=== PATIENT | female | born 1985 | race Asian ===

== ENCOUNTER 2017-10-11 06:45 | Inpatient (IN) | payer SELFPAY ==
[~2017-10-11] VITALS: Ht 160 cm; Wt 72.1 kg
[2017-10-11] MEDS: OXYTOCIN 20 UNITS in LACTATED RINGERS 1,000 ML IV SCH ×2 (02:30→18:26)
[2017-10-11] MEDS ORDERED: PROPOFOL 200 MG/20 ML VIAL IV ONE (07:40)
[2017-10-11] MEDS ORDERED: LACTATED RINGERS 1,000 ML IV SCH (07:48)
[2017-10-11] MEDS ORDERED: CITRIC ACID/SODIUM CITRATE 30 ML UDC PO SCH (07:50)
[2017-10-11] MEDS ORDERED: IBUPROFEN 800 MG TAB PO PRN ×2 (07:50→09:45)
[2017-10-11 08:35] VITALS: BP 108/74
[2017-10-11] MEDS ORDERED: INFLUENZA VIRUS VACCINE QUAD 0.5 ML SYR IMVAC SCH (08:35)
--- NOTE | 2017-10-11 08:42 | NUR ---
PATIENT HAS BEEN SCREENED AND CATEGORIZED LOW NUTRITION RISK. PATIENT WILL BE SEEN WITHIN 7 DAYS OF ADMISSION. 10/17/[address]
[2017-10-11] MEDS ORDERED: ONDANSETRON 4 MG/2 ML VIAL IVP ONE (09:15)
[2017-10-11] MEDS ORDERED: ePHEDrine 50 MG/ML VIAL IV ONE (09:15)
[2017-10-11] MEDS ORDERED: CALC500T2 (09:29)
[2017-10-11] MEDS ORDERED: CITRIC ACID/SODIUM CITRATE 30 ML UDC ONE (09:34)
[2017-10-11] MEDS ORDERED: MIDAZOLAM 2 MG/2 ML VIAL ONE (09:38)
[2017-10-11] MEDS ORDERED: MORPHINE PRES FREE 10 MG/10 ML AMP IV ONE (09:39)
[2017-10-11] MEDS ORDERED: KETAMINE 500 MG/5 ML VIAL ONE (09:39)
[2017-10-11] MEDS ORDERED: fentaNYL 0.05 MG/ML VIAL ONE (09:39)
[2017-10-11] MEDS ORDERED: OXYTOCIN 10 UNITS/ML VIAL ONE (09:42)
[2017-10-11] MEDS ORDERED: TRIAMCINOLONE 40 MG/ML 5ML VIAL ONE (09:42)
[2017-10-11] MEDS ORDERED: TRIMETHOBENZAMIDE 200 MG/2 ML SYR IM PRN (09:45)
[2017-10-11] MEDS ORDERED: SIMETHICONE 80 MG TAB.CHEW PO PRN (09:45)
[2017-10-11] MEDS ORDERED: METHYLERGONOVINE 0.2 MG/ML AMP IM PRN (09:45)
[2017-10-11] MEDS ORDERED: TEMAZEPAM 15 MG CAP PO PRN (09:45)
[2017-10-11] MEDS ORDERED: MEASLES, MUMPS, AND RUBELLA 1 VIAL SQVAC PRN (09:45)
[2017-10-11] MEDS ORDERED: oxyCODONE/APAP 5/325 MG 1 TAB TAB PO PRN (09:45)
[2017-10-11] MEDS ORDERED: KETOROLAC 30 MG/ML VIAL IVP PRN (10:00)
[2017-10-11] MEDS ORDERED: diphenhydrAMINE 50 MG/ML VIAL IVP PRN (10:00)
[2017-10-11] MEDS ORDERED: ONDANSETRON 4 MG/2 ML VIAL IVP PRN (10:00)
[2017-10-11 13:02] LABS: BASOPHILS # (AUTO) 0.1 K/uL (0.00-0.22); EOSINOPHILS # (AUTO) 0.1 K/uL (0-0.4); HEMATOCRIT 34.2 % (36-48); HEMOGLOBIN 11.7 g/dL (12.0-16.0); LYMPHOCYTES # (AUTO) 1.1 K/uL (2.5-16.5); LYMPHOCYTES % (AUTO) 8.7 % (20.5-51.1); MEAN CORPUSCULAR HEMOGLOBIN 31 pg (27-31); MEAN CORPUSCULAR HGB CONC 34 g/dL (33-37); MEAN CORPUSCULAR VOLUME 90 fL (80-94); MONOCYTES # (AUTO) 0.4 K/uL (0.8-1.0); MONOCYTES % (AUTO) 3.3 % (1.7-9.3); NEUTROPHILS # (AUTO) 10.9 K/uL (1.8-7.7); PLATELET COUNT (AUTO) 154 K/uL (140-450); RED BLOOD CELL COUNT(AUTO) 3.81 MIL/uL (4.20-5.40); RED CELL DISTRIBUTION WIDTH 12.4 % (11.6-13.7); WHITE BLOOD COUNT (AUTO) 12.6 K/uL (4.8-10.8)
[2017-10-11 13:14] LABS: ANION GAP 12.4 (8-16); CARBON DIOXIDE 25.2 mmol/L (21-32); CREATININE 0.6 mg/dL (0.6-1.3); POTASSIUM 3.6 mmol/L (3.5-5.1)
[2017-10-11 13:20] LABS: ALBUMIN 2.4 g/dL (3.4-5.0); TOTAL BILIRUBIN 0.3 mg/dL (0.0-1.0)
[2017-10-11 13:40] LABS: RAPID PLASMA REAGIN NON-REACTIVE (Non Reactiv)
--- NOTE | 2017-10-11 14:43 | NUR ---
AWAKE AND ALERT TOLERATED INCENTIVE SPIROMETRY THERAPY WELL WITHOUT INCIDENT ENCOURAGED PATIENT WITH ACKNOWLEDGEMENT TO USE EVERY 1-2 HOURS WHILE AWAKE
[2017-10-11] MEDS ORDERED: DOCUSATE SOD/SENNA 50/8.6 MG 1 TAB PO SCH (21:00)
[2017-10-12] MEDS ORDERED: OXYTOCIN 10 UNITS/ML VIAL ONE (02:33)
[2017-10-12 07:59] LABS: HEMATOCRIT 31.7 % (36-48); HEMOGLOBIN 10.9 g/dL (12.0-16.0); MEAN CORPUSCULAR HEMOGLOBIN 31 pg (27-31); MEAN CORPUSCULAR HGB CONC 34 g/dL (33-37); MEAN CORPUSCULAR VOLUME 91 fL (80-94); PLATELET COUNT (AUTO) 155 K/uL (140-450); RED BLOOD CELL COUNT(AUTO) 3.47 MIL/uL (4.20-5.40); RED CELL DISTRIBUTION WIDTH 12.2 % (11.6-13.7); WHITE BLOOD COUNT (AUTO) 14.1 K/uL (4.8-10.8)
[2017-10-12 10:17] LABS: LYMPHOCYTES % (MANUAL) 12 % (20-46); MONOCYTES % (MANUAL) 6 % (5-12)
[2017-10-12 10:18] LABS: EOSINOPHILS % (MANUAL) 1 % (0-4)
[2017-10-12] MEDS: HYDROcodone/APAP 5/325 MG 1 TAB TAB PO PRN ×3 (10:51→20:47)
== END 2017-10-14 14:00 | disposition home or self-care (01) | DRG 766 ==
LOC: MLD 06:45 → MFCC 10:25
PROVIDERS: ADMIT Obstetrics & Gynecology; ATTEND Obstetrics & Gynecology
PROC: 10D00Z1 Extraction of Products of Conception, Low, Open Approach (ICD-10-PCS; principal; 2017-10-11 09:30)
DX: O34.211 Maternal care for low transverse scar from previous cesarean delivery (principal); Z37.0 Single live birth; Z3A.40 40 weeks gestation of pregnancy
CPT/HCPCS: 36415; 80053; 85025; 86592; 86886; 86900; 86901; J0690; J2250; J2270; J2405; J2590; J2704; J3010; J3301; J7060; J7120

== ENCOUNTER 2020-02-15 12:22 | Inpatient (IN) | payer MEDICAID, SELFPAY ==
[~2020-02-15] VITALS: Ht 157.5 cm; Wt 59.9 kg
[~2020-02-15 12:22] MED LIST: CALC500T2
--- NOTE | 2020-02-15 12:24 | NUR ---
PT WHEELCHAIRED TO ER BED 11
[2020-02-15 12:31] VITALS: BP 138/92
--- NOTE | 2020-02-15 12:35 | NUR ---
G4 LMP 11/29/2019 APPROX. 2.5 MONTHS C/O VAGINAL BLEEDING X5 DAYS THAT BECAME HEAVIER WITH ALOT OF BLOOD CLOTS TODAY. PT DENIES PAIN. VSS. BLOOD SATURATING THROUGH SHIRT/UNDERWEAR AND MULTIPLE CLOTS NOTED. BLEEDING IS CONTROLLED AT THIS TIME. PT CHANGED INTO GOWN AND CLEANED UP. PROVIDED PT WITH NEW BRIEF/UNDERWEAR.
--- NOTE | 2020-02-15 12:50 | NUR ---
Female Product Management Consultant (myself) accompanied Dr. Beard for female patient Pelvic Exam.
--- NOTE | 2020-02-15 12:53 | NUR ---
VAGINAL CULTURES COLLECTED AND HANDED TO LAB
[2020-02-15 13:25] LABS: BASOPHILS % (AUTO) 0.3 % (0.0-2.0); EOSINOPHILS % (AUTO) 0.4 % (0.0-4.0); HEMATOCRIT 40.6 % (36-48); HEMOGLOBIN 13.7 g/dL (12.0-16.0); LYMPHOCYTES # (AUTO) 1.3 K/uL (2.5-16.5); MEAN CORPUSCULAR HEMOGLOBIN 30 pg (27-31); MEAN CORPUSCULAR HGB CONC 34 g/dL (33-37); MEAN CORPUSCULAR VOLUME 87.6 fL (80-94); MONOCYTES # (AUTO) 0.5 K/uL (0.8-1.0); NEUTROPHILS # (AUTO) 8.7 K/uL (1.8-7.7); NEUTROPHILS % (AUTO) 82.3 % (42.2-75.2); PLATELET COUNT (AUTO) 211 K/uL (140-450); RED BLOOD CELL COUNT(AUTO) 4.63 MIL/uL (4.20-5.40); RED CELL DISTRIBUTION WIDTH 13.5 % (11.6-13.7); WHITE BLOOD COUNT (AUTO) 10.6 K/uL (4.8-10.8)
--- NOTE | 2020-02-15 13:36 | NUR ---
U/S tech at bedside
[2020-02-15 13:39] LABS: APPEARANCE,URINE BLOODY (CLEAR); BILIRUBIN,URINE NEGATIVE (NEGATIVE); BLOOD, URINE 3+ (NEGATIVE); COLOR,URINE RED (YELLOW); LEUKOCYTE ESTERASE ,URINE NEGATIVE (NEGATIVE); NITRITE, URINE NEGATIVE (NEGATIVE); PH,URINE 7.5 (5.0-9.0); UGLUCOSE NEGATIVE (NEGATIVE)
[2020-02-15 13:43] LABS: RBC,URINE 80-100 /HPF (0-5)
[2020-02-15 13:44] LABS: WBC,URINE 0-5 /HPF (0-5)
[2020-02-15 13:50] LABS: ANION GAP 15.6 (8-16); CREATININE 0.7 mg/dL (0.6-1.3); POTASSIUM 3.6 mmol/L (3.5-5.1); TOTAL BILIRUBIN 0.3 mg/dL (0.0-1.0)
--- NOTE | 2020-02-15 14:39 | NUR ---
PT RESTING IN BED, NO NEW NEEDS AT THIS TIME.
--- NOTE | 2020-02-15 14:45 | NUR ---
DR. ROBERTS SPEAKING WITH PATIENT USING [employer] INTERPRETOR #[id number]
[2020-02-15] MEDS ORDERED: NACL 0.9% 1,000 ML IV ONE (14:55)
[2020-02-15] MEDS ORDERED: NACL 0.9% 1,000 ML IV SCH (15:19)
[2020-02-15] MEDS ORDERED: ACETAMINOPHEN 325 MG TAB PO PRN (15:20)
[2020-02-15] MEDS ORDERED: ONDANSETRON 4 MG/2 ML VIAL IM/IVP PRN (15:20)
[2020-02-15] MEDS ORDERED: DOCUSATE SODIUM 100 MG GELCAP PO PRN (15:20)
[2020-02-15] MEDS ORDERED: HYDROcodone/APAP 7.5/325 MG 1 TAB PO PRN (15:20)
--- NOTE | 2020-02-15 15:42 | NUR ---
Pt transferred to Med/Surg via W/C WITH VICTOR HUGO MARES .
--- NOTE | 2020-02-15 15:50 | NUR ---
PT WAS ADMITTED TO UNIT VIA WHEELCHAIR AT 1550. PT HAS STEADY GAIT WITH NO ASSISTANCE NEEDED. PT DOES NOT SPEAK [place] AND PREFERRED LANGUAGE IS WELSH. SKIN IS INTACT WITH IV ASYMPTOMATIC AND PATENT INFUSING PER ORDERS. RESPIRATIONS ARE EVEN AND UNLABORED WITH NO SIGNS OF DISTRESS NOTED. HEART RATE IS WITHIN NORMAL RANGE. USED BLUE DIESEL STATIONARY ENGINEER PHONE AND PT DOES NOT STATE ANY PAIN AT THIS TIME. SAFETY MEASURES IN PLACE AND WILL CONTINUE TO MONITOR.
[2020-02-15] MEDS: DEXT 5% / NACL 0.45% 1,000 ML IV SCH (16:00)
--- NOTE | 2020-02-15 16:00 | NUR ---
Patient will be admitted to care of DR. BISHOP. Admited to MED SURG. Will go to room 105A. Belongings list completed. Report to VICTOR HUGO MALIK.
[2020-02-15 16:07] LABS: PROTHROMBIN TIME 9.3 secs (10.8-13.4)
--- NOTE | 2020-02-15 17:45 | NUR ---
ADMISSION ASSESSMENT WAS COMPLETED VIA BLUE METAL MINE INSPECTOR PHONE. PT IS CONCERNED THAT THERE IS NO PHONE ELECTRICAL EXPERIMENTAL MECHANIC AVAILABLE. PT ALSO WANTED TO KNOW WHEN THE DOCOTOR WOULD MAKE ROUNDS. ADVISED PT TO ALERT FAMILY TO BRING ANY BELONGINGS NEEDED AND PHYSICIAN SHOULD VISIT WITHIN ONE HOUR. PT DOES NOT COMPLAIN OF PAIN AT THIS TIME NOR HAS ANY QUESTIONS AND WILL CONTINUE TO MONITOR.
--- NOTE | 2020-02-15 19:00 | NUR ---
ENDORSED TO [employer] BI ADMINISTRATOR NURSE. PT IN STABLE CONDITION AND WILL FOLLOW TURNER OF CARE.
[2020-02-15 19:17] LABS: CHOL/HDL RATIO 4.5 (1-4.5); FREE T4 (FREE THYROXINE) 0.95 ng/dL (0.76-1.46); MAGNESIUM 2.1 mg/dL (1.8-2.4); PHOSPHORUS 3.5 mg/dL (2.5-4.9); THYROID STIMULATING HORMONE 6.26 uIU/mL (0.34-3.74)
--- NOTE | 2020-02-15 19:31 | NUR ---
RECEIVED PATIENT IN STABLE CONDITION FROM AM SHIFT NURSE FOR CONTINUITY OF CARE. RESPIRATIONS EVEN, UNLABORED. SKIN WARM, DRY. IV SITE NOTED TO RIGHT FOREARM 20G PATENT/INTACT, INFUSING WELL. NO C/O PAIN. NO S/SX ACUTE DISTRESS. CALL LIGHT WITHIN REACH. WILL CONTINUE TO MONITOR.
--- NOTE | 2020-02-15 21:00 | NUR ---
PATIENT AWAKE AND TALKING ON THE PHONE WITH HER BROTHER. NO C/O PAIN. NO S/SX ACUTE DISTRESS. CALL LIGHT WITHIN REACH. WILL CONTINUE TO MONITOR.
--- NOTE | 2020-02-15 23:16 | NUR ---
ASLEEP AND IN STABLE CONDITION. NO C/O PAIN. NO S/SX ACUTE DISTRESS. CALL LIGHT WITHIN REACH. WILL CONTINUE TO MONITOR.
[2020-02-15] MEDS: MISOPROSTOL 200 MCG TAB PO SCH (23:52)
[2020-02-16] VITALS: BP 113/72
[2020-02-16] MEDS: IBUPROFEN 400 MG TAB PO SCH ×3 (00:19→11:44)
--- NOTE | 2020-02-16 01:35 | NUR ---
MADE ROUNDS. PATIENT CONTINUES IN STABLE CONDITION. NO C/O PAIN. NO S/SX ACUTE DISTRESS. CALL LIGHT WITHIN REACH. WILL CONTINUE TO MONITOR.
--- NOTE | 2020-02-16 03:00 | NUR ---
PATIENT CONTINUES IN STABLE CONDITION. NO C/O PAIN. NO S/SX ACUTE DISTRESS. CALL LIGHT WITHIN REACH. WILL CONTINUE TO MONITOR.
[2020-02-16] MEDS: DEXT 5% / NACL 0.45% 1,000 ML IV SCH ×2 (04:29→06:25)
--- NOTE | 2020-02-16 05:15 | NUR ---
PATIENT ASLEEP. NO C/O PAIN. NO S/SX ACUTE DISTRESS. CALL LIGHT WITHIN REACH. WILL CONTINUE TO MONITOR.
[2020-02-16] MEDS: MISOPROSTOL 200 MCG TAB PO SCH ×2 (05:29→11:31)
[2020-02-16 06:04] LABS: BASOPHILS % (AUTO) 0.2 % (0.0-2.0); EOSINOPHILS # (AUTO) 0.1 K/uL (0-0.4); EOSINOPHILS % (AUTO) 1.6 % (0.0-4.0); HEMATOCRIT 30.8 % (36-48); HEMOGLOBIN 10.4 g/dL (12.0-16.0); LYMPHOCYTES # (AUTO) 1.5 K/uL (2.5-16.5); LYMPHOCYTES % (AUTO) 23.5 % (20.5-51.1); MEAN CORPUSCULAR HEMOGLOBIN 30 pg (27-31); MEAN CORPUSCULAR HGB CONC 34 g/dL (33-37); MEAN CORPUSCULAR VOLUME 88.3 fL (80-94); MONOCYTES # (AUTO) 0.6 K/uL (0.8-1.0); MONOCYTES % (AUTO) 8.6 % (1.7-9.3); NEUTROPHILS # (AUTO) 4.2 K/uL (1.8-7.7); NEUTROPHILS % (AUTO) 66.1 % (42.2-75.2); PLATELET COUNT (AUTO) 185 K/uL (140-450); RED BLOOD CELL COUNT(AUTO) 3.49 MIL/uL (4.20-5.40); RED CELL DISTRIBUTION WIDTH 13.1 % (11.6-13.7); WHITE BLOOD COUNT (AUTO) 6.4 K/uL (4.8-10.8)
[2020-02-16 06:32] LABS: ANION GAP 12.2 (8-16); CARBON DIOXIDE 24.5 mmol/L (21-32); CREATININE 0.6 mg/dL (0.6-1.3); POTASSIUM 3.7 mmol/L (3.5-5.1)
--- NOTE | 2020-02-16 06:48 | NUR ---
PATIENT IN STABLE CONDITION, CALL LIGHT WITHIN REACH. WILL ENDORSE TO AM SHIFT FOR CONTINUITY OF CARE.
--- NOTE | 2020-02-16 07:01 | NUR ---
PATIENT HAS BEEN SCREENED AND CATEGORIZED LOW NUTRITION RISK. PATIENT WILL BE SEEN WITHIN 7 DAYS OF ADMISSION. 02/22/20 SAMANTHA HAHN MS, RDN
--- NOTE | 2020-02-16 07:29 | NUR ---
RECEIVED PT FROM TECHNICAL MGR NURSE. PT IS CURRENTLY SLEEPING WITH NO SIGNS OF DISTRESS NOTED. RESPIRATIONS ARE EVEN AND UNLABORED ON ROOM AIR. SKIN IS INTACT WITH IV PATENT, ASYMPTOMATIC, AND INFUSING PER ORDER. BED IS IN LOW, SEMI FOWLERS POSITION. SAFETY MEASURES IN PLACE AND WILL CONTINUE TO MONITOR.
[2020-02-16 08:00] VITALS: BP 107/76
--- NOTE | 2020-02-16 10:50 | NUR ---
PT IS CURRENTRLY AWAKE, ALERT AND LAYING IN BED. RADIOLOGY IS AT BED SIDE TO PERFORM ULTRASOUND PER PHYSICIAN ORDERS. SAFETY MEASURES IN PLACE AND WILL CONTINUE TO MONITOR
--- NOTE | 2020-02-16 11:33 | NUR ---
ADMINISTERED MEDICATIONS PER ORDER AND TOLERATED WELL. NO OTHER COM[PLAINTS AT THIS TIME. SAFETY MEASURES IN PLACE AND WILL CONTINUE TO MONITOR.
--- NOTE | 2020-02-16 12:38 | NUR ---
PT IS CURRENTLY ALERT, AWAKE, AND LAYING IN BED. NO SIGNS OF DISTRESS NOTED OR COMPLAINTS OF PAIN. SAFETY MEASURES IN PLACE AND WILL CONTINUE TO MONITOR.
[2020-02-16 13:11] VITALS: BP 107/76
--- NOTE | 2020-02-16 15:20 | NUR ---
PT WAS DISCHARGED TO HOME AND ESCORTED OFF UNIT VIA WHEELCHAIR. ID BANDS WERE REMOVED. PT WAS IN STABLE CONDITION. IV WAS REMOVED WITH LUMEN INTACT AND MINIMAL BLOOD LOSS. DISCHARGE INSTRUCTIONS, MEDICATION ADHERENCE, AND MD FOLLOW INSTRUCTIONS GIVEN. PT VERBALIZED UNDERSTANDING THROUGH DISK RECOATER USING BLUE PHONE AND NO FURTHER QUESTIONS ASKED.
[2020-02-17 09:30] LABS: T4 (THYROXINE) 7.1 ug/dL (4.5-12.0)
== END 2020-02-16 15:20 | disposition home or self-care (01) | DRG 564 ==
LOC: MED 12:22 → MTU 15:24
PROVIDERS: ADMIT General Practice; ATTEND General Practice
DX: O03.1 Delayed or excessive hemorrhage following incomplete spontaneous abortion (principal); E87.2 Acidosis; O03.33 Metabolic disorder following incomplete spontaneous abortion; Z82.49 Family history of ischemic heart disease and other diseases of the circulatory system; Z83.3 Family history of diabetes mellitus
CPT/HCPCS: 36415; 76817; 80048; 80053; 81001; 82150; 83036; 83605; 83690; 83735; 83880; 84100; 84436; 84439; 84443; 84479; 84484; 84702; 85025; 85610; 85730; 86900; 86901; 87070; 87081; 87110; 87205; 87210; 87299; 96360; 99285; J7030; Q0092